=== PATIENT | female | born 1950 | race Caucasian/White ===

== ENCOUNTER 2020-11-06 05:44 | Emergency (ER) | payer MEDICARE, SELFPAY ==
[2020-11-06 05:52] VITALS: BP 147/87; PULSE 101; RESP 18; TEMP 36.4; O2SAT 96
--- NOTE | 2020-11-06 05:52 | ED.GENADULT ---
HPI - General Adult General Chief complaint: Unspecified Stated complaint: SBO Time Seen by Provider: 11/06/20 05:52 History of Present Illness HPI narrative: Patient is a 62-year-old female who presents ER by EMS with a small bowel obstruction. Patient was seen at [facility] in [place] , She was diagnosed with a small bowel obstruction versus a internal hernia. She recently had surgery at [facility] for the same issue in the last month. She is excepted to [facility] for transfer and was going there by ambulance when the ambulance lost ability to repeat the cab. Due to the dropping temperature and wanted the patient be comfortable they diverted to this hospital. They have a replacement rig in route. At this time patient is experiencing some mild nausea and discomfort in her abdomen but is in no distress. She is received Dilaudid at the outside hospital as well as some Zofran and Phenergan. She reports she is vomited 30 times today and last had a good bowel movement yesterday. She has no complaints at this time. Related Data Allergies Allergy/AdvReac Type Severity Reaction Status Date / Time LICO Inhibitors Allergy Unknown Verified 11/06/20 06:27 cefuroxime [From Ceftin] Allergy Unknown Verified 11/06/20 06:27 Sulfa (Sulfonamide Allergy Unknown Verified 11/06/20 06:27 Antibiotics) Review of Systems Constitutional: Constitutional: Denies chills and Denies fever(s) Respiratory: Respiratory: Denies cough and Denies dyspnea Gastrointestinal: Gastrointestinal: Reports abdominal pain, Reports bloating, Reports nausea and Reports vomiting PMFSH Past Medical History Medical History (Updated 11/06/20 @ 06:55 by Chandrakant Moreira MD) Complications of gastric bypass surgery History of fibromyalgia Hypertension Parkinsons disease Surgical History Surgical History (Updated 11/06/20 @ 05:55 by Chandrakant Moreira MD) History of appendectomy History of cholecystectomy Social History Social History (Updated 11/06/20 @ 05:55 by Chnadrakant Moreira MD) Smoking status: Never smoker Exam Narrative: Exam Narrative: GENERAL: Well-appearing, well-nourished, and in no acute distress. HEAD: Normocephalic, atraumatic. CHEST: Clear to auscultation. No respiratory distress. HEART: Regular rate and rhythm. Normal peripheral pulses. ABDOMEN: Soft, mild diffuse discomfort, nondistended. EXTREMITIES: Normal range of motion. No edema. NEURO: Alert and oriented x3. PSYCH: Normal mood and affect. Course Course Emergency Course: Patient resting comfortably. Replacement ambulance is in route here per [facility]. I reviewed the patient's chart from outside hospital. She had a normal CMP/lipase/troponin/CBC/UA. She did receive Dilaudid at the outside hospital as well as Zofran, Phenergan, and IV fluid. CT results demonstrated a complicated bowel obstruction with questionable internal hernia. As patient appears stable and has been able to review the records will perform no additional interventions at this time and will wait for a ride to continue her transport to [facility]. [facility] access contacted, Dr. Hwang is the accepting and there is still a bed for the patient. Reevaluation(s) Reevaluation #1: EMS has arrived. Pt stable. Date: 11/06/20 Time: 06:54 Vital Signs Vital signs: Vital Signs Temperature 97.5 F L 11/06/20 05:52 Pulse Rate 101 H 11/06/20 05:52 Respiratory Rate 18 11/06/20 05:52 Blood Pressure 147/87 H 11/06/20 05:52 Pulse Oximetry 96 11/06/20 05:52 Temperature 97.5 F L 11/06/20 05:52 Pulse Rate 99 11/06/20 06:46 Respiratory Rate 18 11/06/20 06:46 Blood Pressure 136/73 11/06/20 06:46 Pulse Oximetry 96 11/06/20 06:46 Medical Decision Making Vital Signs Vital Signs: Vital Signs Temperature 97.5 F L 11/06/20 05:52 Pulse Rate 101 H 11/06/20 05:52 Respiratory Rate 18 11/06/20 05:52 Blood Pressure 147/87 H 11/06/20 05:52 Pulse Oximetry 96 11/06/20 05:52 Temperature
--- NOTE | 2020-11-06 06:19 | PC.NURSE ---
2722 This nurse contacted patient's Ermias upon her request to update him. [phone].
[2020-11-06 06:46] VITALS: BP 136/73; PULSE 99; RESP 18; O2SAT 96
== END 2020-11-06 07:00 | disposition short-term general hospital (02) ==
PROVIDERS: Emergency Provider Emergency Medicine; PCP Pediatrics
DX: K56.609 Unspecified intestinal obstruction, unspecified as to partial versus complete obstruction (principal); M79.7 Fibromyalgia; Z98.84 Bariatric surgery status; G20 Parkinson's disease; I10 Essential (primary) hypertension
CPT/HCPCS: 99285